=== PATIENT | male | born 1960 | race Caucasian/White ===

== ENCOUNTER 2016-11-24 09:29 | Inpatient (IN) | payer MEDICARE ==
[2016-11-24 10:17] LABS: Hematocrit 48 % (42-52); Hemoglobin 16.1 g/dl (14.0-18.0); Mean Corpuscular HGB Conc 33 g/dl (31-36); Mean Corpuscular Hemoglobin 30 pg (27-31); Mean Corpuscular Volume 90 fL (80-94); Mean Platelet Volume 7 um3 (7.4-10.4); Red Blood Count 5.37 10^6/ul (4.0-5.4); Red Cell Distribution Width 14 % (10.5-15); White Blood Count 10.1 10^3/ul (3.5-10.8)
[2016-11-24 10:20] LABS: Urine Bilirubin Negative (Negative); Urine Glucose Negative (Negative); Urine Nitrite Negative (Negative)
[2016-11-24 10:33] LABS: ALT 12 U/L (7-52); AST 14 U/L (13-39); Albumin 4.7 g/dL (3.2-5.2); Alkaline Phosphatase 46 U/L (34-104); Anion Gap 8 mmol/L (2-11); Blood Urea Nitrogen 10 mg/dL (6-24); CO2 Carbon Dioxide 24 mmol/L (22-32); Chloride 104 mmol/L (101-111); EGFR African American 110.4 (>60); EGFR Non-African American 85.9 (>60); Globulin 2.5 g/dL (2-4); Glucose 116 mg/dL (70-100); Potassium 3.9 mmol/L (3.5-5.0); Sodium 136 mmol/L (133-145); Total Protein 7.2 g/dL (6.4-8.9)
[2016-11-24 10:49] LABS: Acetaminophen < 15 mcg/mL; Alcohol < 10 mg/dL (<10); Salicylate < 2.50 mg/dL (<30)
[2016-11-24 11:01] LABS: Benzodiazepine Urine Screen Presumptive Positive (None Detect)
[2016-11-24] MEDS ORDERED: Acetaminophen TAB* 325 MG PO PRN (12:36)
[2016-11-24] MEDS ORDERED: Al Hydrox/Mg Hydrox/Simet LIQ* 30 ML UDC PO PRN (12:36)
[2016-11-24] MEDS: clonazePAM TAB(*) 0.5 MG PO PRN ×2 (14:27→21:48)
--- NOTE | 2016-11-24 15:56 | PN ---
MHU: Group Therapy Note - Service Type Service Type: [id number] Group Psychotherapy - Group Participation Patient Participating in Group: No
--- NOTE | 2016-11-24 16:14 | ED ---
Brenden Black Rebecca, scribed for Justice Milligan MD on 11/24/16 at 1004 . Psychiatric Complaint - HPI Summary HPI Summary: Pt is a 56 y/o M who presents to ED c/o anxiety and panic attacks for 3 days. He reports that he I just get afraid that I'll lose control." Additionally c/o insomnia and decreased PO intake. Sx aggravated and alleviated by nothing. Denies SIs/HIs. Prior similar episodes that were less severe. - History Of Current Complaint Chief Complaint: EDMentalHealth Time Seen by Provider: 11/24/16 09:44 Hx Obtained From: Patient Onset/Duration: Lasting Days - 3 days, Still Present Character: Anxious Aggravating Factor(s): Nothing Alleviating Factor(s): Nothing Associated Signs And Symptoms: Positive: Sleep Disturbance, Appetite Change Has Suicidal: Denies: Thoughts Has Homicidal: Denies: Thoughts - Allergies/Home Medications Allergies/Adverse Reactions: Allergies Allergy/AdvReac Type Severity Reaction Status Date / Time No Known Allergies Allergy Verified 11/24/16 14:38 PMH/Surg Hx/FS Hx/Imm Hx Endocrine/Hematology History: Denies: Hx Diabetes, Hx Thyroid Disease Cardiovascular History: Denies: Hx Hypertension Respiratory History: Denies: Hx Asthma, Hx Chronic Obstructive Pulmonary Disease (COPD) GI History: Denies: Hx Ulcer Musculoskeletal History: Reports: Hx Orthopedic Injury Psychiatric History: Reports: Hx Depression, Hx Panic Disorder, Hx Post Traumatic Stress Disorder - Surgical History Surgery Procedure, Year, and Place: spinal fusion for t12 burst fracture; left shoulder arthoscopy; left orbital fracture Infectious Disease History: No Infectious Disease History: Denies: Hx Hepatitis, Hx Human Immunodeficiency Virus (HIV), History Other Infectious Disease, Traveled Outside the [place] in Last 30 Days - Family History Known Family History: Negative: Cardiac Disease, Hypertension, Diabetes - Social History Alcohol Use: Daily Alcohol Amount: one beer Substance Use Type: Reports: None Smoking Status (MU): Former Smoker Type: Cigarettes Have You Smoked in the Last Year: No Review of Systems Positive: Other - Decreased PO intake Positive: Anxious, Other - Panic attacks, insomnia; NEGATIVE: SIs, HIs All Other Systems Reviewed And Are Negative: Yes Physical Exam - Summary Physical Exam Summary: VITAL SIGNS: Reviewed. GENERAL: ~Patient is a well-developed and nourished (MALE OR FEMALE) who is lying comfortable in the stretcher. ~Patient is not in any acute respiratory distress. HEAD AND FACE: No signs of trauma. ~No ecchymosis, hematomas or skull depressions. No sinus tenderness. EYES: PERRLA, EOMI x 2, No injected conjunctiva, no nystagmus. EARS: Hearing grossly intact. Ear canals and tympanic membranes are within normal limits. MOUTH: Oropharynx within normal limits. NECK: Supple, trachea is midline, no adenopathy, no JVD, no carotid bruit, no c- spine tenderness, neck with full ROM. CHEST: Symmetric, no tenderness at palpation LUNGS: Clear to auscultation bilaterally. No wheezing or crackles. CVS: Regular rate and rhythm, S1 and S2 present, no murmurs or gallops appreciated. ABDOMEN: Soft, non-tender. No signs of distention. No rebound no guarding, and no masses palpated. Bowel sounds are normal. EXTREMITIES: FROM in all major joints, no edema, no cyanosis or clubbing. NEURO: Alert and oriented x 3. No acute neurological deficits. Speech is normal and follows commands. SKIN: Dry and warm PSYCH: Depressed and denies any suicidal thoughts or plan. Sad, easily crying. No homicidal thoughts or plan. No signs of psychosis or pressure speech. No tangential speech. Triage Information Reviewed: Yes Vital Signs On Initial Exam: Initial Vitals Temp Pulse Resp BP Pulse Ox 97.8 F 86 18 124/79 100 11/24/16 09:32 11/24/16 09:32 11/24/16 09:32 11/24/16 09:32 11/24/16 09:32 Vital Signs Reviewed: Yes Diagnostics - Vital Signs Vital Signs Temp Pulse Resp BP Pulse Ox 11/24/16 09:49 97.8 F 86 18 124/79 100 11/24/16 09:32 97.8 F 86 18 124/79 100 - Laboratory Lab Results: Lab Results 11/24/16 11/24/16 11/24/16 Range/Units 09:59 09:59 10:04 WBC 10.1 (3.5-10.8) 10^3/ul RBC 5.37 (4.0-5.4) 10^6/ul Hgb 16.1 (14.0-18.0) g/dl Hct 48 (42-52) % MCV 90 (80-94) fL MCH 30 (27-31) pg MCHC 33 (31-36) g/dl RDW 14 (10.5-15) % Plt Count 302 (150-450) 10^3/ul MPV 7 L (7.4-10.4) um3 Neut % (Auto) 83.3 H (38-83) % Lymph % (Auto) 11.2 L (25-47) % Mower % (Auto) 4.8 (1-9) % Eos % (Auto) 0.4 (0-6) % Baso % (Auto) 0.3 (0-2) % Absolute Neuts (auto) 8.4 H (1.5-7.7) 10^3/ul Absolute Lymphs (auto) 1.1 (1.0-4.8) 10^3/ul Absolute Monos (auto) 0.5 (0-0.8) 10^3/ul Absolute Eos (auto) 0 (0-0.6) 10^3/ul Absolute Basos (auto) 0 (0-0.2) 10^3/ul Absolute Nucleated RBC 0 10^3/ul Nucleated RBC % 0 Sodium (133-145) mmol/L Potassium (3.5-5.0) mmol/L Chloride (101-111) mmol/L Carbon Dioxide (22-32) mmol/L Anion Gap (2-11) mmol/L BUN (6-24) mg/dL Creatinine (0.67-1.17) mg/dL Est GFR ( Amer) (>60) Est GFR (Non-Af Amer) (>60) BUN/Creatinine Ratio (8-20) Glucose (70-100) mg/dL Calcium (8.6-10.3) mg/dL Total Bilirubin (0.2-1.0) mg/dL AST (13-39) U/L ALT (7-52) U/L Alkaline Phosphatase (34-104) U/L Total Protein (6.4-8.9) g/dL Albumin (3.2-5.2) g/dL Globulin (2-4) g/dL Albumin/Globulin Ratio (1-3) TSH (0.34-5.60) mcIU/mL Urine Color Yellow Urine Appearance Clear Urine pH 5.0 (5-9) Ur Specific [place] 1.016 (1.010-1.030) Urine Protein Negative (Negative) Urine Ketones Negative (Negative) Urine Blood Negative (Negative) Urine Nitrate Negative (Negative) Urine Bilirubin Negative (Negative) Urine Urobilinogen Negative (Negative) Ur Leukocyte Esterase Negative (Negative) Urine Glucose Negative (Negative) Salicylates (<30) mg/dL Urine Opiates Screen None detected (None Detect) Acetaminophen mcg/mL Ur Barbiturates Screen None detected (None Detect) Ur Phencyclidine Scrn None detected (None Detect) Ur Amphetamines Screen None detected (None Detect) U Benzodiazepines Scrn Presumptive positive H (None Detect) Urine Cocaine Screen None detected (None Detect) U Cannabinoids Screen None detected (None Detect) Serum Alcohol (<10) mg/dL 11/24/16 Range/Units 10:04 WBC (3.5-10.8) 10^3/ul RBC (4.0-5.4) 10^6/ul Hgb (14.0-18.0) g/dl Hct (42-52) % MCV (80-94) fL MCH (27-31) pg MCHC (31-36) g/dl RDW (10.5-15) % Plt Count (150-450) 10^3/ul MPV (7.4-10.4) um3 Neut % (Auto) (38-83) % Lymph % (Auto) (25-47) % Mower % (Auto) (1-9) % Eos % (Auto) (0-6) % Baso % (Auto) (0-2) % Absolute Neuts (auto) (1.5-7.7) 10^3/ul Absolute Lymphs (auto) (1.0-4.8) 10^3/ul Absolute Monos (auto) (0-0.8) 10^3/ul Absolute Eos (auto) (0-0.6) 10^3/ul Absolute Basos (auto) (0-0.2) 10^3/ul Absolute Nucleated RBC 10^3/ul Nucleated RBC % Sodium 136 (133-145) mmol/L Potassium 3.9 (3.5-5.0) mmol/L Chloride 104 (101-111) mmol/L Carbon Dioxide 24 (22-32) mmol/L Anion Gap 8 (2-11) mmol/L BUN 10 (6-24) mg/dL Creatinine 0.91 (0.67-1.17) mg/dL Est GFR ( Amer) 110.4 (>60) Est GFR (Non-Af Amer) 85.9 (>60) BUN/Creatinine Ratio 11.0 (8-20) Glucose 116 H (70-100) mg/dL Calcium 10.0 (8.6-10.3) mg/dL Total Bilirubin 0.50 (0.2-1.0) mg/dL AST 14 (13-39) U/L ALT 12 (7-52) U/L Alkaline Phosphatase 46 (34-104) U/L Total Protein 7.2 (6.4-8.9) g/dL Albumin 4.7 (3.2-5.2) g/dL Globulin 2.5 (2-4) g/dL Albumin/Globulin Ratio 1.9 (1-3) TSH 1.90 (0.34-5.60) mcIU/mL Urine Color Urine Appearance Urine pH (5-9) Ur Specific [place] (1.010-1.030) Urine Protein (Negative) Urine Ketones (Negative) Urine Blood (Negative) Urine Nitrate (Negative) Urine Bilirubin (Negative) Urine Urobilinogen (Negative) Ur Leukocyte Esterase (Negative) Urine Glucose (Negative) Salicylates < 2.50 (<30) mg/dL Urine Opiates Screen (None Detect) Acetaminophen < 15 mcg/mL Ur Barbiturates Screen (None Detect) Ur Phencyclidine Scrn (None Detect) Ur Amphetamines Screen (None Detect) U Benzodiazepines Scrn (None Detect) Urine Cocaine Screen (None Detect) U Cannabinoids Screen (None Detect) Serum Alcohol < 10 (<10) mg/dL Result Diagrams: 11/24/16 10:04 11/24/16 10:04 Lab Statement: Any lab studies that have been ordered have been reviewed, and results considered in the medical decision making process. Course/Dx - Course Assessment/Plan: Pt is a 56 y/o M who presents to ED c/o anxiety and panic attacks for 3 days. He reports that he I just get afraid that I'll lose control. " Additionally c/o insomnia and decreased PO intake. Sx aggravated and alleviated by nothing. Denies SIs/HIs. Prior similar episodes that were less severe. Medically cleared for MHE at 1116. Blood work without any significant abnormalities. MHE was done by Dr. Chavez who admitted the pt to his services for further workup and management. Dx is anxiety, unspecified. - Differential Dx/Clinical Impression Differential Diagnosis/HQI/PQRI: Positive: Anxiety, Depression, Suicidal Ideation Provider Diagnosis: Anxiety disorder, unspecified Discharge - Discharge Plan Condition: Stable Disposition: ADMITTED TO [facility] The documentation as recorded by the Brenden jordan Rebecca accurately reflects the service I personally performed and the decisions made by , Justice Milligan MD.
[2016-11-24] MEDS: Lidocaine Patch REMOVE* 1 NOTE MISC PATCH OFF SCH (22:05)
[2016-11-25] MEDS: clonazePAM TAB(*) 0.5 MG PO PRN ×2 (09:07→16:11)
--- NOTE | 2016-11-25 12:37 | HP ---
H&P (Free Text) History and Physical: HPI: ---- Patient is a 56yo male with PPHx significant for Unspecified anxiety d/o, Social anxiety d/o, Panic d/o, and OCD who self presents to [facility] ED reporting 3 days of worsening anxiety and panic attacks which are no longer responding to PRN Xanax or usual coping mechanisms used to distract from the panic. Patient reports the intensity of his anxiety and panic attacks increased in 02/2016, around the time patient's worker's comp insurance stopped covering his [facility] care. Patient reports he stopped the Rx'd Paxil at that time also because he was in a sexual relationship and did not want SSRI s/e's. Patient reports it peaked also 3 weeks ago when baby sitting his 4 grandchildren. He reported experiencing a panic attack and having to call his kids to apple picker the grandchildren. Patient has been on Xanax since 2013 and reports he just ran out of a [address] bottle Rx'd in 2013. He reports a current Rx by his PCP which he has also rarely used. Patient denies depressive symptoms. He exercises daily and reports no hx of alcohol abuse. He reports drinking 5-6 beers per day. Patient reports his anxiety and panic attacks started in his 20's and has periods where the frequency and intensity increase. Patient denies hx of suicide attempt and denies hx of SIB. He had been compliant with a recent SSRI-Prozac but stopped in due to s/e of urinary obstruction with associated flank pain. He is in no current relationship and is amenable to med modification and use of an SSRI. Patient reports no symptoms of psychosis nor were any elicited on interview. Patient has 2 rifles in his home and bottles of old Rx muscle relaxants. He has denied SI/HI and AH/VH since presentation to the ED. Past Psych Hx: Inpt - This is patient's 1st. Outpt - seen at [facility], last in 02/2016 Psychotropic med hx - Duloxetine, Paxil, Imipramine, Klonopin, Celexa(s/e-. Recently Rx'd Xanax and Prozac(s/e-urinary obstruction) by PCP. Suicide attempt Hx / SIB Hx: Patient denies hx of suicide attempt and denies hx of SIB. Trauma Hx: Patient reports having 2 traumatic falls at work. One in 2005 with head trauma and post concussive syndrome. The 2nd in 2009 after a 20ft fall to concrete and suffering a broken hip, ribs, and back. He denies hx of physical abuse, emotional abuse, and sexual abuse/assault. Substance Hx: Patient reports no hx of alcohol abuse. He reports drinking 5-6 beers per day. No hx of alcohol w/d symptoms. No hx of alcohol w/d seizure or DTs. Medical Hx: None Allergies: --------- NKDA Family Hx: -Patient reports no suicide attempts or completions in mom or dad's side of the family. -Patient reports maternal GM dealt with anxiety. -Patient reports mother dealt with anxiety. -Patient reports dad and many on his side of the family has alcohol use d/o symptoms. Social Hx: --------- -Patient born in [place] and raised in [place] -Raised by mom and dad until their divorce when he was 15yo, and was raised by dad until 17yo. -[employer]: grad -1 marriage ending in divorce -Worked primarily in the [employer] -2 sisters, close -2 kids, close -4 grandchildren -Babysits his grandchildren weekly -Unemployed -Self described introvert -Exercises and watches TV with his day -Has 2 rifles in his home -Has old Rx muscle relaxant tabs in his home Home Meds: Home Medications Medication Instructions Recorded Confirmed Type Lidocaine PATCH 5%* [Lidoderm 5% 1 patch TRANSDERM DAILY PRN 03/21/12 10/11/14 History Patch*] Paroxetine HCl [Paxil] 10 mg PO DAILY 03/12/14 10/11/14 History DOXYcycline CAP(*) [DOXYcycline 100 mg PO BID #20 cap 10/17/15 Rx 100MG CAP(*)] VITALS: --------- Vital Signs (72 hours) 11/24/16 11/24/16 11/24/16 09:32 09:49 14:05 Temperature 97.8 F 97.8 F 98.2 F Pulse Rate 86 86 73 Respiratory 18 18 16 Rate Blood Pressure 124/79 124/79 125/86 (mmHg) O2 Sat by Pulse 100 100 Oximetry 11/24/16 11/24/16 11/24/16 14:21 14:27 14:29 Temperature 98.2 F Pulse Rate 73 Respiratory 16 18 16 Rate Blood Pressure 125/86 (mmHg) O2 Sat by Pulse 99 Oximetry 11/24/16 11/24/16 11/24/16 16:27 21:48 23:48 Temperature Pulse Rate Respiratory 16 16 16 Rate Blood Pressure (mmHg) O2 Sat by Pulse Oximetry 11/25/16 11/25/16 11/25/16 08:04 09:07 11:07 Temperature 98.6 F Pulse Rate 63 Respiratory 16 18 18 Rate Blood Pressure 113/70 (mmHg) O2 Sat by Pulse 100 Oximetry 11/25/16 16:11 Temperature Pulse Rate Respiratory 16 Rate Blood Pressure (mmHg) O2 Sat by Pulse Oximetry LABS: ----- 11/24/16 11/24/16 11/24/16 09:59 09:59 10:04 WBC 10.1 RBC 5.37 Hgb 16.1 Hct 48 MCV 90 MCH 30 MCHC 33 RDW 14 Plt Count 302 MPV 7 L Neut % (Auto) 83.3 H Lymph % (Auto) 11.2 L [place] % (Auto) 4.8 Eos % (Auto) 0.4 Baso % (Auto) 0.3 Absolute Neuts (auto) 8.4 H Absolute Lymphs (auto) 1.1 Absolute Monos (auto) 0.5 Absolute Eos (auto) 0 Absolute Basos (auto) 0 Absolute Nucleated RBC 0 Nucleated RBC % 0 Sodium Potassium Chloride Carbon Dioxide Anion Gap BUN Creatinine Est GFR ( Amer) Est GFR (Non-Af Amer) BUN/Creatinine Ratio Glucose Calcium Total Bilirubin AST ALT Alkaline Phosphatase Total Protein Albumin Globulin Albumin/Globulin Ratio TSH Urine Color Yellow Urine Appearance Clear Urine pH 5.0 Ur Specific [place] 1.016 Urine Protein Negative Urine Ketones Negative Urine Blood Negative Urine Nitrate Negative Urine Bilirubin Negative Urine Urobilinogen Negative Ur Leukocyte Esterase Negative Urine Glucose Negative Salicylates Urine Opiates Screen None detected Acetaminophen Ur Barbiturates Screen None detected Ur Phencyclidine Scrn None detected Ur Amphetamines Screen None detected U Benzodiazepines Scrn Presumptive positive H Urine Cocaine Screen None detected U Cannabinoids Screen None detected Serum Alcohol 11/24/16 10:04 WBC RBC Hgb Hct MCV MCH MCHC RDW Plt Count MPV Neut % (Auto) Lymph % (Auto) [place] % (Auto) Eos % (Auto) Baso % (Auto) Absolute Neuts (auto) Absolute Lymphs (auto) Absolute Monos (auto) Absolute Eos (auto) Absolute Basos (auto) Absolute Nucleated RBC Nucleated RBC % Sodium 136 Potassium 3.9 Chloride 104 Carbon Dioxide 24 Anion Gap 8 BUN 10 Creatinine 0.91 Est GFR ( Amer) 110.4 Est GFR (Non-Af Amer) 85.9 BUN/Creatinine Ratio 11.0 Glucose 116 H Calcium 10.0 Total Bilirubin 0.50 AST 14 ALT 12 Alkaline Phosphatase 46 Total Protein 7.2 Albumin 4.7 Globulin 2.5 Albumin/Globulin Ratio 1.9 TSH 1.90 Urine Color Urine Appearance Urine pH Ur Specific [place] Urine Protein Urine Ketones Urine Blood Urine Nitrate Urine Bilirubin Urine Urobilinogen Ur Leukocyte Esterase Urine Glucose Salicylates < 2.50 Urine Opiates Screen Acetaminophen < 15 Ur Barbiturates Screen Ur Phencyclidine Scrn Ur Amphetamines Screen U Benzodiazepines Scrn Urine Cocaine Screen U Cannabinoids Screen Serum Alcohol < 10 PHYSICAL EXAM: GEN - in NAD, looks stated age HEENT - NC/AT, EOEMI, no lesions or discharge noted, conjunctivae clear NECK - supple, no JVD, no LAD, CARDIAC - S1/S2, no discernable murmurs ABD - (+) BS x 4 quad, non-tender EXT - no edema, no lesions MUSCULOSKEL - 5/5 muscle strength in all extremities SKIN - intact, no lesions NEURO - CN 2-12, steady gait MSE: ----- Appearance - thin build, fair hygeine, in NAD Behavior - calm, cooperative Speech - RVR, prosody wnl Eye Contact - good Mood - "anxious" Affect - anxious TP - linear and GD TC - med mx for panic attacks and anxiety Perception - no signs of psychosis noted or reported Orientation - A&Ox3 Cognition - intact Insight - good Judgement - good SI / HI - denies both since admission ASSESSMENT: 1. Unspecified anxiety d/o 2. Panic disorder 3. Social anxiety d/o 4. OCD PLAN: ------ 1. Continue admission to [facility] for safety and symptom mx. 2. Continue Klonopin scheduled at 1mg po qam and 0.5mg po qhs for anxiety. 3. Will D/C Prozac due to patients report of urinary obstruction with flank pain on this med. 4. Patient gives informed consent to start Zoloft at 100mg po daily for anxiety/ depression. 5. Continue compiling collateral information from [facility] providers. 6. Patient to participate in milieu activities and groups.
[2016-11-25] MEDS: Lidocaine Patch REMOVE* 1 NOTE MISC PATCH OFF SCH (22:12)
[2016-11-25] MEDS: clonazePAM TAB(*) 0.5 MG PO SCH (22:13)
[2016-11-26] MEDS: Sertraline* 100 MG TAB PO SCH (10:20)
[2016-11-26] MEDS: clonazePAM TAB(*) 1 MG PO SCH (10:21)
[2016-11-26] MEDS: Lidocaine PATCH 5%* 1 PATCH TRANSDERM PRN (13:18)
[2016-11-26] MEDS: clonazePAM TAB(*) 0.5 MG PO SCH (21:00)
[2016-11-27] MEDS: Lidocaine Patch REMOVE* 1 NOTE MISC PATCH OFF SCH ×2 (01:16→19:14)
[2016-11-27] MEDS: clonazePAM TAB(*) 1 MG PO SCH (09:50)
[2016-11-27] MEDS: Sertraline* 100 MG TAB PO SCH (09:50)
--- NOTE | 2016-11-27 13:47 | PN ---
Subjective - Subjective Service Type: 11139 Hosp care 15 min low complexity - This note was an error. Plan - Plan Treatment Plan: Name: LALO CASTELLANOS Birthdate: 1960 [id number] Medications: Current Medications Acetaminophen (Tylenol Tab*) 650 mg PO Q4H PRN PRN Reason: for pain; or Temp >101 F Last Admin: 11/24/16 14:27 Dose: 325 mg Al Hydrox/Mg Hydrox/Simethicone (Maalox Plus*) 30 ml PO Q4H PRN PRN Reason: INDIGESTION Clonazepam (Klonopin Tab(*)) 0.5 mg PO BEDTIME [facility] Last Admin: 11/26/16 21:00 Dose: 0.5 mg Clonazepam (Klonopin Tab(*)) 1 mg PO QAM [facility] Last Admin: 11/27/16 09:50 Dose: 1 mg Hydroxyzine HCl (Atarax Tab*) 25 mg PO Q4H PRN PRN Reason: AGITATION/ANXIETY/INSOMNIA Lidocaine (Lidoderm 5% Patch*) 1 patch TRANSDERM DAILY PRN PRN Reason: PAIN Last Admin: 11/26/16 13:18 Dose: 1 patch Pharmacy Profile Note (Lidocaine Patch Remove*) 1 note PATCH OFF 2100 [facility] Last Admin: 11/27/16 01:16 Dose: 1 note Sertraline HCl (Zoloft*) 100 mg PO DAILY [facility] Last Admin: 11/27/16 09:50 Dose: 100 mg
--- NOTE | 2016-11-27 15:32 | PN ---
Subjective - Subjective Service Type: 30823 Hosp care 15 min low complexity Subjective: Saw patient in his room. Warren was found pacing on the unit and restless. Reports that his anxiety symptoms are worse around mid day and asking for adjustment to his Klonopin. Denies mood, thoughts or perceptual disturbances. Also denies SI/HI. Objective - Appearance Appearance: Healthy Appearing Dysmorphic Features: No Hygiene: Normal Grooming: Well Kept - Behavior Psychomotor Activities: Abnormal-Increased Exhibits Abnormal Movement: No - Attitude and Relatedness Attitude and Relatedness: Appropriate - Speech Quality: Unpressured Latencies: Normal Quantity: Appropriate - Mood Patient's Decription of Mood: "Anxious" - Affect Observed Affect: Depressed Affect Consistent with: Dysphoria - Thought Process Patient's Thought Process: Coherent, Goal Directed Thought Content: No Passive Wish, No Suicidal Planning, No Homicidal Ideation, No Paranoid Ideation - Sensorium Experiencing Hallucinations: No, Sensorium is Clear Type of Hallucinations: Visual: No, Auditory: No, Command: No - Level of Consciousness Level of Consciousness: Alert Orientation: Yes Intact, Yes Orientated to Time, Yes Orientated to Place, Yes Orientated to Person - Impulse Control Impulse Control: Intact - Insight and Judgement Insight and Judgement: Poor - Group Participation Particating in Group Activities: No - Medication Management Medication Management Adherence: Yes Assessment - Assessment Merits Inpatient Hospitalization: For Stabilization Inpatient DSM-IV Dx: Unspecified Anxiety d/o Clinical Impression: Not much change of anxiety. Plan - Plan Treatment Plan: Name: WARREN CASTELLANOS Birthdate: 1960 [id number] Continued Medication Management: Continue Outpt Medication Medications: Current Medications Acetaminophen (Tylenol Tab*) 650 mg PO Q4H PRN PRN Reason: for pain; or Temp >101 F Last Admin: 11/24/16 14:27 Dose: 325 mg Al Hydrox/Mg Hydrox/Simethicone (Maalox Plus*) 30 ml PO Q4H PRN PRN Reason: INDIGESTION Clonazepam (Klonopin Tab(*)) 0.5 mg PO BEDTIME [facility] Last Admin: 11/26/16 21:00 Dose: 0.5 mg Clonazepam (Klonopin Tab(*)) 1 mg PO QAM [facility] Last Admin: 11/27/16 09:50 Dose: 1 mg Hydroxyzine HCl (Atarax Tab*) 25 mg PO Q4H PRN PRN Reason: AGITATION/ANXIETY/INSOMNIA Lidocaine (Lidoderm 5% Patch*) 1 patch TRANSDERM DAILY PRN PRN Reason: PAIN Last Admin: 11/26/16 13:18 Dose: 1 patch Pharmacy Profile Note (Lidocaine Patch Remove*) 1 note PATCH OFF 2100 [facility] Last Admin: 11/27/16 01:16 Dose: 1 note Sertraline HCl (Zoloft*) 100 mg PO DAILY [facility] Last Admin: 11/27/16 09:50 Dose: 100 mg - Discharge Plan Discharge Plan: Outpatient Follow Up Outpatient Program: [facility]
[2016-11-27] MEDS: hydrOXYzine HCL TAB* 25 MG PO PRN (16:43)
[2016-11-27] MEDS: clonazePAM TAB(*) 0.5 MG PO SCH (21:32)
[2016-11-28] MEDS: Sertraline* 100 MG TAB PO SCH (09:20)
[2016-11-28] MEDS: clonazePAM TAB(*) 1 MG PO SCH ×2 (09:21→20:28)
--- NOTE | 2016-11-28 13:22 | PN ---
MHU: Group Therapy Note - Service Type Service Type: 09684 Group Psychotherapy - Cognitive Behavioral Group Therapy ( CBT):Patient was attentive and participatory in CBT programming this morning, and remained in good behavioral control. Patient expressed positive insights regarding relevant treatment interventions and goals.
[2016-11-28] MEDS: hydrOXYzine HCL TAB* 25 MG PO PRN (13:34)
[2016-11-28] MEDS ORDERED: LORazepam TAB(*) 1 MG PO PRN (15:03)
--- NOTE | 2016-11-28 15:10 | PN ---
Subjective - Subjective Service Type: 43193 Hosp care 15 min low complexity Subjective: Patient visible in the milieu, noted to be pleasant and social. Patient reports good sleep last night and appetite wnl. This am, patient reports waking feeling refreshed and at approx 8am experiencing an untriggered drop in mood. Patient reports he took his morning meds at 9am. He reports his mood increased after administration of Zoloft 100mg and Klonopin 1mg, but reports his anxiety did as well. Patient reports he has not experienced a panic attack since admission, but reports anxiety at noon was at a level equal to that which prompted his ED presentation. Patient denies SI/HI and AH/VH. He is amenable to continuing on with Zoloft and is amenable to dose increase in Klonopin. Patient also given an order for Ativan 1mg po daily PRN for breakthrough anxiety. Objective - Appearance Appearance: Thin Framed Dysmorphic Features: No Hygiene: Normal Grooming: Fairly Well Kept - Behavior Psychomotor Activities: Normal Exhibits Abnormal Movement: No - Attitude and Relatedness Attitude and Relatedness: Cooperative Eye Contact: Good - Speech Quality: Unpressured Latencies: Normal Quantity: Appropriate - Mood Patient's Decription of Mood: "Anxious" - Affect Observed Affect: Fair Affect Consistent with: Euthymia - Thought Process Patient's Thought Process: Coherent Thought Content: No Passive Wish, No Suicidal Planning, No Homicidal Ideation, No Paranoid Ideation - Sensorium Experiencing Hallucinations: No, Sensorium is Clear Type of Hallucinations: Visual: No, Auditory: No, Command: No - Level of Consciousness Level of Consciousness: Alert Orientation: Yes Intact, Yes Orientated to Time, Yes Orientated to Place, Yes Orientated to Person - Impulse Control Impulse Control: Intact - Insight and Judgement Insight and Judgement: Fair - Group Participation Particating in Group Activities: Yes - Medication Management Medication Management Adherence: Yes Assessment - Assessment Merits Inpatient Hospitalization: For Immediate Safety, For Stabilization Inpatient DSM-IV Dx: 1. Unspecified anxiety d/o. 2. Panic disorder. 3. Social anxiety d/o. 4. OCD Plan - Plan Treatment Plan: Name: LALO CASTELLANOS Birthdate: 1960 [id number] PLAN: ------ 1. Continue admission to [facility] for safety and symptom mx. 2. Increase Klonopin from 1mg to 1.5mg po qam and from 0.5mg to 1mg po qhs for anxiety. 3. Will start Ativan 1mg po daily PRN breakthrough anxiety. 4. Continue Zoloft 100mg po daily for anxiety/depression. 5. Prozac D/C'd due to patients report of urinary obstruction with flank pain on this med. 6. Continue compiling collateral information from [facility] providers. 7. Patient to participate in milieu activities and groups. Medications: Current Medications Acetaminophen (Tylenol Tab*) 650 mg PO Q4H PRN PRN Reason: for pain; or Temp >101 F Last Admin: 11/24/16 14:27 Dose: 325 mg Al Hydrox/Mg Hydrox/Simethicone (Maalox Plus*) 30 ml PO Q4H PRN PRN Reason: INDIGESTION Last Admin: 11/27/16 16:07 Dose: 30 ml Clonazepam (Klonopin Tab(*)) 1 mg PO BEDTIME SO Clonazepam (Klonopin Tab(*)) 1.5 mg PO QAM SO Hydroxyzine HCl (Atarax Tab*) 25 mg PO Q4H PRN PRN Reason: AGITATION/ANXIETY/INSOMNIA Last Admin: 11/28/16 13:34 Dose: 25 mg Lidocaine (Lidoderm 5% Patch*) 1 patch TRANSDERM DAILY PRN PRN Reason: PAIN Last Admin: 11/26/16 13:18 Dose: 1 patch Lorazepam (Ativan Tab(*)) 1 mg PO DAILY PRN PRN Reason: ANXIETY Pharmacy Profile Note (Lidocaine Patch Remove*) 1 note PATCH OFF [facility] [facility] Last Admin: 11/27/16 19:14 Dose: Not Given Sertraline HCl (Zoloft*) 100 mg PO DAILY SO Last Admin: 11/28/16 09:20 Dose: 100 mg - Discharge Plan Discharge Plan: Outpatient Follow Up
[2016-11-28] MEDS: Lidocaine Patch REMOVE* 1 NOTE MISC PATCH OFF SCH (20:28)
[2016-11-29] MEDS: Sertraline* 100 MG TAB PO SCH (09:57)
[2016-11-29] MEDS: clonazePAM TAB(*) 0.5 MG PO SCH (09:57)
[2016-11-29] MEDS: LORazepam TAB(*) 1 MG PO PRN ×2 (12:41→18:18)
--- NOTE | 2016-11-29 17:54 | PN ---
Subjective - Subjective Service Type: 78412 Hosp care 15 min low complexity Subjective: Patient visible in the milieu, pleasant and social. Patient is calm and cooperative with interview. He reports ongoing improved mood and level of anxiety. He has not experienced a panic attack since initiation of Clonazepam. Patient reports 1x use of PRN Ativan today for increased anxiety, again around lunchtime. Patient can not identify any possible triggers. Patient reports good sleep and appetite. He is compliant with meds and denies med s/e's today. Patient instructed to attempt to go tomorrow with no use of PRN Ativan if possible, instead using his learned coping mechanisms to work through any breakthrough anxiety. Patient is amenable. Patient again denies SI/HI and AH/VH. Objective - Appearance Appearance: Thin Framed Dysmorphic Features: No Hygiene: Normal Grooming: Well Kept - Behavior Psychomotor Activities: Normal Exhibits Abnormal Movement: No - Attitude and Relatedness Attitude and Relatedness: Cooperative Eye Contact: Fair - Speech Quality: Unpressured Latencies: Normal Quantity: Appropriate - Mood Patient's Decription of Mood: "Okay" - Affect Observed Affect: Fair Affect Consistent with: Euthymia - Thought Process Patient's Thought Process: Coherent Thought Content: No Passive Wish, No Suicidal Planning, No Homicidal Ideation, No Paranoid Ideation - Sensorium Experiencing Hallucinations: No, Sensorium is Clear Type of Hallucinations: Visual: No, Auditory: No, Command: No - Level of Consciousness Level of Consciousness: Alert Orientation: Yes Intact, Yes Orientated to Time, Yes Orientated to Place, Yes Orientated to Person - Impulse Control Impulse Control: Intact - Insight and Judgement Insight and Judgement: Fair - Group Participation Particating in Group Activities: Yes - Medication Management Medication Management Adherence: Yes Assessment - Assessment Merits Inpatient Hospitalization: For Immediate Safety, For Stabilization Inpatient DSM-IV Dx: 1. Unspecified anxiety d/o. 2. Panic disorder. 3. Social anxiety d/o. 4. OCD Plan - Plan Treatment Plan: Name: LALO CASTELLANOS Birthdate: 1960 [id number] PLAN: ------ 1. Continue admission to [facility] for safety and symptom mx. 2. Continue Klonopin from 1mg to 1.5mg po qam and from 0.5mg to 1mg po qhs for anxiety. 3. Continue Ativan 1mg po BID PRN breakthrough anxiety. 4. Continue Zoloft 100mg po daily for anxiety/depression. 5. Prozac D/C'd due to patients report of urinary obstruction with flank pain on this med. 6. Continue compiling collateral information from [facility] providers. 7. Patient to participate in milieu activities and groups. Medications: Current Medications Acetaminophen (Tylenol Tab*) 650 mg PO Q4H PRN PRN Reason: for pain; or Temp >101 F Last Admin: 11/24/16 14:27 Dose: 325 mg Al Hydrox/Mg Hydrox/Simethicone (Maalox Plus*) 30 ml PO Q4H PRN PRN Reason: INDIGESTION Last Admin: 11/27/16 16:07 Dose: 30 ml Clonazepam (Klonopin Tab(*)) 1 mg PO BEDTIME [facility] Last Admin: 11/28/16 20:28 Dose: 1 mg Clonazepam (Klonopin Tab(*)) 1.5 mg PO QAM [facility] Last Admin: 11/29/16 09:57 Dose: 1.5 mg Hydroxyzine HCl (Atarax Tab*) 25 mg PO Q4H PRN PRN Reason: AGITATION/ANXIETY/INSOMNIA Last Admin: 11/28/16 13:34 Dose: 25 mg Lidocaine (Lidoderm 5% Patch*) 1 patch TRANSDERM DAILY PRN PRN Reason: PAIN Last Admin: 11/26/16 13:18 Dose: 1 patch Lorazepam (Ativan Tab(*)) 1 mg PO BID PRN PRN Reason: ANXIETY Last Admin: 11/29/16 12:41 Dose: 1 mg Pharmacy Profile Note (Lidocaine Patch Remove*) 1 note PATCH OFF 2100 [facility] Last Admin: 11/28/16 20:28 Dose: Not Given Sertraline HCl (Zoloft*) 100 mg PO DAILY [facility] Last Admin: 11/29/16 09:57 Dose: 100 mg - Discharge Plan Discharge Plan: Outpatient Follow Up
[2016-11-29] MEDS: clonazePAM TAB(*) 1 MG PO SCH (21:38)
[2016-11-29] MEDS: Lidocaine Patch REMOVE* 1 NOTE MISC PATCH OFF SCH (21:39)
[2016-11-30] MEDS: Lidocaine PATCH 5%* 1 PATCH TRANSDERM PRN (09:09)
[2016-11-30] MEDS: Sertraline* 100 MG TAB PO SCH (09:11)
[2016-11-30] MEDS: clonazePAM TAB(*) 0.5 MG PO SCH (09:11)
[2016-11-30] MEDS: LORazepam TAB(*) 1 MG PO PRN ×2 (11:20→16:20)
--- NOTE | 2016-11-30 11:25 | PN ---
Subjective - Subjective Service Type: 21992 Hosp care 15 min low complexity Subjective: Patient in group on my approach. He is noted to be visible in the milieu, pleasant and social. Patient reports fair sleep and appetite. He reports continued episodes of intense anxiety where employing mechanism to cope is not enough. Patient reports use of 1x PRN Ativan 1mg po today. He reports the only possible trigger he's come up with is his daily losing the people he talks to to discharge, which happened again today. Patient reports he continues to process in his mind returning to his home so to decrease anxiety associated with discharge. He denies SI/HI and AH/VH. He requests referral to a psychiatrist for his hospital f/u as he does not trust his PCP any longer to handle his MH care. Objective - Appearance Appearance: Thin Framed Dysmorphic Features: No Hygiene: Normal Grooming: Fairly Well Kept - Behavior Psychomotor Activities: Normal Exhibits Abnormal Movement: No - Attitude and Relatedness Attitude and Relatedness: Cooperative Eye Contact: Fair - Speech Quality: Unpressured Latencies: Normal Quantity: Appropriate - Mood Patient's Decription of Mood: "Anxious" - Affect Observed Affect: Fair Affect Consistent with: Euthymia - Thought Process Patient's Thought Process: Coherent Thought Content: No Passive Wish, No Suicidal Planning, No Homicidal Ideation, No Paranoid Ideation - Sensorium Experiencing Hallucinations: No, Sensorium is Clear Type of Hallucinations: Visual: No, Auditory: No, Command: No - Level of Consciousness Level of Consciousness: Alert Orientation: Yes Intact, Yes Orientated to Time, Yes Orientated to Place, Yes Orientated to Person - Impulse Control Impulse Control: Intact - Insight and Judgement Insight and Judgement: Fair - Group Participation Particating in Group Activities: Yes - Medication Management Medication Management Adherence: Yes Assessment - Assessment Inpatient DSM-IV Dx: 1. Unspecified anxiety d/o. 2. Panic disorder. 3. Social anxiety d/o. 4. OCD Plan - Plan Treatment Plan: Name: LALO CASTELLANOS Birthdate: 1960 [id number] PLAN: ------ 1. Continue admission to [facility] for safety and symptom mx. 2. Continue Klonopin 1.5mg po qam and 1mg po qhs for anxiety. 3. Continue Ativan 1mg po BID PRN breakthrough anxiety. 4. Continue Zoloft 100mg po daily for anxiety/depression. 5. Prozac D/C'd due to patients report of urinary obstruction with flank pain on this med. 6. Continue compiling collateral information from [facility] providers. 7. Patient to participate in milieu activities and groups. Medications: Current Medications Acetaminophen (Tylenol Tab*) 650 mg PO Q4H PRN PRN Reason: for pain; or Temp >101 F Last Admin: 11/24/16 14:27 Dose: 325 mg Al Hydrox/Mg Hydrox/Simethicone (Maalox Plus*) 30 ml PO Q4H PRN PRN Reason: INDIGESTION Last Admin: 11/27/16 16:07 Dose: 30 ml Clonazepam (Klonopin Tab(*)) 1 mg PO BEDTIME [facility] Last Admin: 11/29/16 21:38 Dose: 1 mg Clonazepam (Klonopin Tab(*)) 1.5 mg PO QAM [facility] Last Admin: 11/30/16 09:11 Dose: 1.5 mg Hydroxyzine HCl (Atarax Tab*) 25 mg PO Q4H PRN PRN Reason: AGITATION/ANXIETY/INSOMNIA Last Admin: 11/28/16 13:34 Dose: 25 mg Lidocaine (Lidoderm 5% Patch*) 1 patch TRANSDERM DAILY PRN PRN Reason: PAIN Last Admin: 11/30/16 09:09 Dose: 1 patch Lorazepam (Ativan Tab(*)) 1 mg PO BID PRN PRN Reason: ANXIETY Last Admin: 11/30/16 11:20 Dose: 1 mg Pharmacy Profile Note (Lidocaine Patch Remove*) 1 note PATCH OFF 2100 [facility] Last Admin: 11/29/16 21:39 Dose: Not Given Sertraline HCl (Zoloft*) 100 mg PO DAILY [facility] Last Admin: 11/30/16 09:11 Dose: 100 mg
[2016-11-30] MEDS: clonazePAM TAB(*) 1 MG PO SCH (20:53)
[2016-11-30] MEDS: Lidocaine Patch REMOVE* 1 NOTE MISC PATCH OFF SCH (20:53)
[2016-12-01] MEDS: Sertraline* 100 MG TAB PO SCH (09:39)
[2016-12-01] MEDS: clonazePAM TAB(*) 0.5 MG PO SCH (09:39)
[2016-12-01] MEDS: hydrOXYzine HCL TAB* 25 MG PO PRN (11:26)
--- NOTE | 2016-12-01 14:33 | PN ---
Subjective - Subjective Service Type: 03174 Hosp care 15 min low complexity Subjective: Patient visible in the milieu, sitting alone at a table on my approach. Patient reports he has experienced increased anxiety today. He reports anxiety of 8/10, if 10/10 was the intensity level on admission he experienced due to recurrent intractable panic attacks. Patient identifies his upcoming discharge as the cause. He reports focusing on his feeling that he currently has no coping skills to employ that work once discharged and he finds himself at home with a panic attack. Patient request continued admission to work on gaining more coping skills. He reports SW has planned to sit with him and discuss coping strategies. He reports use of both PRN Ativans yesterday due to inability to cope with anxiety without it. He reports no med s/e's. Sleep and appetite are wnl. He denies SI/HI and AH/VH. Patient gives this provider consent to call his son Capo Avila to clear his home of patient's 2 rifles and old Rx pills. Objective - Appearance Appearance: Thin Framed Dysmorphic Features: No Hygiene: Normal Grooming: Fairly Well Kept - Behavior Psychomotor Activities: Normal Exhibits Abnormal Movement: No - Attitude and Relatedness Attitude and Relatedness: Cooperative Eye Contact: Fair - Speech Quality: Unpressured Latencies: Normal Quantity: Appropriate - Mood Patient's Decription of Mood: "Anxious" - Affect Observed Affect: Fair Affect Consistent with: Euthymia - Thought Process Patient's Thought Process: Coherent Thought Content: No Passive Wish, No Suicidal Planning, No Homicidal Ideation, No Paranoid Ideation - Sensorium Experiencing Hallucinations: No, Sensorium is Clear Type of Hallucinations: Visual: No, Auditory: No, Command: No - Level of Consciousness Level of Consciousness: Alert Orientation: Yes Intact, Yes Orientated to Time, Yes Orientated to Place, Yes Orientated to Person - Impulse Control Impulse Control: Intact - Insight and Judgement Insight and Judgement: Fair - Group Participation Particating in Group Activities: Yes - Medication Management Medication Management Adherence: Yes Assessment - Assessment Merits Inpatient Hospitalization: For Immediate Safety, For Stabilization Inpatient DSM-IV Dx: 1. Unspecified anxiety d/o. 2. Panic disorder. 3. Social anxiety d/o. 4. OCD Plan - Plan Treatment Plan: Name: LALO AVILA Birthdate: 1960 [id number] PLAN: ------ 1. Continue admission to [facility] for safety and symptom mx. 2. Continue Klonopin 1.5mg po qam and 1mg po qhs for anxiety. 3. Continue Ativan 1mg po BID PRN breakthrough anxiety. 4. Continue Zoloft 100mg po daily for anxiety/depression. 5. Prozac D/C'd due to patients report of urinary obstruction with flank pain on this med. 6. Patient gives this provider consent to call his son Capo Avila to clear his home of patient's 2 rifles and old Rx pills. 7. Tenative discharge on Monday discussed with patient. 8. Patient to participate in milieu activities and groups. Medications: Current Medications Acetaminophen (Tylenol Tab*) 650 mg PO Q4H PRN PRN Reason: for pain; or Temp >101 F Last Admin: 11/24/16 14:27 Dose: 325 mg Al Hydrox/Mg Hydrox/Simethicone (Maalox Plus*) 30 ml PO Q4H PRN PRN Reason: INDIGESTION Last Admin: 11/27/16 16:07 Dose: 30 ml Clonazepam (Klonopin Tab(*)) 1 mg PO BEDTIME [facility] Last Admin: 11/30/16 20:53 Dose: 1 mg Clonazepam (Klonopin Tab(*)) 1.5 mg PO QAM [facility] Last Admin: 12/01/16 09:39 Dose: 1.5 mg Hydroxyzine HCl (Atarax Tab*) 25 mg PO Q4H PRN PRN Reason: AGITATION/ANXIETY/INSOMNIA Last Admin: 12/01/16 11:26 Dose: 25 mg Lidocaine (Lidoderm 5% Patch*) 1 patch TRANSDERM DAILY PRN PRN Reason: PAIN Last Admin: 11/30/16 09:09 Dose: 1 patch Lorazepam (Ativan Tab(*)) 1 mg PO BID PRN PRN Reason: ANXIETY Last Admin: 11/30/16 16:20 Dose: 1 mg Pharmacy Profile Note (Lidocaine Patch Remove*) 1 note PATCH OFF [facility] Last Admin: 11/30/16 20:53 Dose: 1 note Sertraline HCl (Zoloft*) 100 mg PO DAILY [facility] Last Admin: 12/01/16 09:39 Dose: 100 mg - Discharge Plan Discharge Plan: Outpatient Follow Up
[2016-12-01] MEDS: LORazepam TAB(*) 1 MG PO PRN (15:31)
--- NOTE | 2016-12-01 16:15 | PN ---
MHU: Group Therapy Note - Service Type Service Type: [id number] Group Psychotherapy - Medication education group. Discussed categories of psychopharmacology, side effects, risks/benefits. Reviewed common misconceptions and facts. Patient participated fully, tangential at times but redirectable.
[2016-12-01] MEDS: clonazePAM TAB(*) 1 MG PO SCH (21:56)
[2016-12-01] MEDS: Lidocaine Patch REMOVE* 1 NOTE MISC PATCH OFF SCH (22:23)
[2016-12-02] MEDS: Sertraline* 100 MG TAB PO SCH (10:02)
[2016-12-02] MEDS: clonazePAM TAB(*) 0.5 MG PO SCH (10:02)
[2016-12-02] MEDS: LORazepam TAB(*) 1 MG PO PRN (11:15)
--- NOTE | 2016-12-02 11:48 | PN ---
MHU: Group Therapy Note - Service Type Service Type: [id number] Group Psychotherapy - Cognitive Behavioral Group Therapy ( CBT):Patient was attentive and participatory in CBT programming this morning, and remained in good behavioral control. Warren tends to engage in help rejecting dynamics in group context, but is attentive to discussion and appropriate with peers.
[2016-12-02] MEDS: hydrOXYzine HCL TAB* 25 MG PO PRN (13:32)
--- NOTE | 2016-12-02 17:06 | PN ---
Subjective - Subjective Service Type: 79439 Hosp care 15 min low complexity Subjective: Patient visible in the milieu, pleasant, and social with peers. He is participating in milieu activities and groups. Patient reports interest in starting Duloxetine as he learned of its dual neuralgia and mood benefits in med group yesterday with unit DIRECTOR OF BLOOD. Patient informed this is true , but trial would have to be started with outpt MH provider as Zoloft is being uptitrated currently with benefit. Patient informed started another serotenergic med may lead to issues including serotenergic syndrome. He was educated it is best to uptitrate Zoloft to max dose and if ineffective controlling anxiety he can then taper off Zoloft and start trial of Duloxetine. Patient amenable. He denies SI/HI and AH/VH. He reports good sleep and appetite. Patient is med compliant and denies med s/ e. He reports ongoing benefit from groups developing coping skills. Patient reminded he would not discharge on PRN ativan and encouraged to use coping skills with worsening anxiety instead of his BID PRN ativan tabs. Patient acknowledged understanding and was amenable. Objective - Appearance Appearance: Well Developed/Nourished, Thin Framed Dysmorphic Features: No Hygiene: Normal Grooming: Well Kept - Behavior Psychomotor Activities: Normal Exhibits Abnormal Movement: No - Attitude and Relatedness Attitude and Relatedness: Cooperative Eye Contact: Good - Speech Quality: Unpressured Latencies: Normal Quantity: Appropriate - Mood Patient's Decription of Mood: "Okay" - Affect Observed Affect: Fair Affect Consistent with: Euthymia - Thought Process Patient's Thought Process: Coherent Thought Content: No Passive Wish, No Suicidal Planning, No Homicidal Ideation, No Paranoid Ideation - Sensorium Experiencing Hallucinations: No, Sensorium is Clear Type of Hallucinations: Visual: No, Auditory: No, Command: No - Level of Consciousness Level of Consciousness: Alert Orientation: Yes Intact, Yes Orientated to Time, Yes Orientated to Place, Yes Orientated to Person - Impulse Control Impulse Control: Intact - Insight and Judgement Insight and Judgement: Fair - Group Participation Particating in Group Activities: Yes - Medication Management Medication Management Adherence: Yes Assessment - Assessment Merits Inpatient Hospitalization: For Immediate Safety, For Stabilization Inpatient DSM-IV Dx: 1. Unspecified anxiety d/o. 2. Panic disorder. 3. Social anxiety d/o. 4. OCD Plan - Plan Treatment Plan: Name: LALO Méndezdate: 1960 [id number] PLAN: ------ 1. Continue admission [place] [facility] for safety and symptom mx. 2. Continue Klonopin 1.5mg po qam and 1mg po qhs for anxiety. 3. Continue Ativan 1mg po BID PRN breakthrough anxiety. 4. Continue Zoloft 100mg po daily for anxiety/depression. 5. Prozac D/C'd due to patients report of urinary obstruction with flank pain on this med. 6. Patient gives this provider consent to call his son Capo Avila to clear his home of patient's 2 rifles and old Rx pills. VM left x2, no call or message yet Capo. 7. Tenative discharge on Monday discussed with patient. 8. Patient to participate in milieu activities and groups. Medications: Current Medications Acetaminophen (Tylenol Tab*) 650 mg PO Q4H PRN PRN Reason: for pain; or Temp >101 F Last Admin: 11/24/16 14:27 Dose: 325 mg Al Hydrox/Mg Hydrox/Simethicone (Maalox Plus*) 30 ml PO Q4H PRN PRN Reason: INDIGESTION Last Admin: 11/27/16 16:07 Dose: 30 ml Clonazepam (Klonopin Tab(*)) 1 mg PO BEDTIME [facility] Last Admin: 12/01/16 21:56 Dose: 1 mg Clonazepam (Klonopin Tab(*)) 1.5 mg PO QAM [facility] Last Admin: 12/02/16 10:02 Dose: 1.5 mg Hydroxyzine HCl (Atarax Tab*) 25 mg PO Q4H PRN PRN Reason: AGITATION/ANXIETY/INSOMNIA Last Admin: 12/02/16 13:32 Dose: 25 mg Lidocaine (Lidoderm 5% Patch*) 1 patch TRANSDERM DAILY PRN PRN Reason: PAIN Last Admin: 11/30/16 09:09 Dose: 1 patch Lorazepam (Ativan Tab(*)) 1 mg PO BID PRN PRN Reason: ANXIETY Last Admin: 12/02/16 11:15 Dose: 1 mg Pharmacy Profile Note (Lidocaine Patch Remove*) 1 note PATCH OFF [address] [facility] Last Admin: 12/01/16 22:23 Dose: Not Given Sertraline HCl (Zoloft*) 100 mg PO DAILY [facility] Last Admin: 12/02/16 10:02 Dose: 100 mg - Discharge Plan Discharge Plan: Outpatient Follow Up
[2016-12-02] MEDS: clonazePAM TAB(*) 1 MG PO SCH (21:33)
[2016-12-02] MEDS: Lidocaine Patch REMOVE* 1 NOTE MISC PATCH OFF SCH (21:34)
[2016-12-03] MEDS: clonazePAM TAB(*) 0.5 MG PO SCH (10:07)
[2016-12-03] MEDS: Sertraline* 100 MG TAB PO SCH (10:08)
[2016-12-03] MEDS: LORazepam TAB(*) 1 MG PO PRN ×2 (12:41→18:40)
[2016-12-03] MEDS: hydrOXYzine HCL TAB* 25 MG PO PRN (14:25)
[2016-12-03] MEDS: clonazePAM TAB(*) 1 MG PO SCH (21:09)
[2016-12-03] MEDS: Lidocaine Patch REMOVE* 1 NOTE MISC PATCH OFF SCH (21:10)
[2016-12-04] MEDS: clonazePAM TAB(*) 0.5 MG PO SCH (09:53)
[2016-12-04] MEDS: Sertraline* 100 MG TAB PO SCH (09:54)
[2016-12-04] MEDS: LORazepam TAB(*) 1 MG PO PRN ×2 (11:33→18:10)
[2016-12-04] MEDS: hydrOXYzine HCL TAB* 25 MG PO PRN (13:22)
[2016-12-04] MEDS: clonazePAM TAB(*) 1 MG PO SCH (20:45)
[2016-12-04] MEDS: Lidocaine Patch REMOVE* 1 NOTE MISC PATCH OFF SCH (20:46)
[2016-12-05 08:31] VITALS: BP 123/79
[2016-12-05] MEDS: clonazePAM TAB(*) 0.5 MG PO SCH (09:20)
[2016-12-05] MEDS: Sertraline* 100 MG TAB PO SCH (09:21)
[2016-12-05] MEDS ORDERED: LORazepam TAB(*) 1 MG PO ONE (11:50)
[2016-12-05] MEDS ORDERED: LORazepam TAB(*) 1 MG ONE (13:42)
[2016-12-05] MEDS ORDERED: LORazepam TAB(*) 1 MG PO PRN (13:59)
--- NOTE | 2016-12-05 14:04 | DS ---
Subjective - Subjective Service Types: 06003 [facility] Day Mgmt simple under 30 min Subjective: Patient reports good benefit from groups over the weekend and reports he feels more comfortable that the coping mechanisms he learned on this admission will be beneficial. SW informed this provider that patient's daughter has already cleared his home of his 2 rifles. Patient reports she also took his old bottle of muscle relaxants. Patient reports he feels ready for discharge. He denies SI/HI and AH/VH. Patient reports good sleep, appetite, and denies med s/e's. Objective - Appearance Appearance: Well Developed/Nourished, Thin Framed Dysmorphic Features: No Hygiene: Normal Grooming: Well Kept - Behavior Psychomotor Activities: Normal Exhibits Abnormal Movement: No - Attitude and Relatedness Attitude and Relatedness: Cooperative Eye Contact: Good - Speech Quality: Unpressured Latencies: Normal Quantity: Appropriate - Mood Patient's Decription of Mood: "Anxious" - Affect Observed Affect: Fair Affect Consistent with: Euthymia - Thought Process Patient's Thought Process: Coherent Thought Content: No Passive Wish, No Suicidal Planning, No Homicidal Ideation, No Paranoid Ideation - Sensorium Experiencing Hallucinations: No, Sensorium is Clear Type of Hallucinations: Visual: No, Auditory: No, Command: No - Level of Consciousness Level of Consciousness: Alert Orientation: Yes Intact, Yes Orientated to Time, Yes Orientated to Place, Yes Orientated to Person - Impulse Control Impulse Control: Intact - Insight and Judgement Insight and Judgement: Fair - Group Participation Particating in Group Activities: Yes - Medication Management Medication Management Adherence: Yes Treatment Course & Assessment Clinical Course & Impression: HOSPITAL COURSE: Patient is a 56yo male with PPHx significant for Unspecified anxiety d/o, Social anxiety d/o, Panic d/o, and OCD who self presents to [facility] reporting 3 days of worsening anxiety and panic attacks which are no longer responding to PRN Xanax or usual coping mechanisms used to distract from the panic. Patient reports the intensity of his anxiety and panic attacks increased in 02/2016, around the time patient's worker's comp insurance stopped covering his [facility]. Patient reports he stopped the Rx'd Paxil at that time also because he was in a sexual relationship and did not want SSRI s/e's. Patient reports it peaked also 3 weeks ago when baby sitting his 4 grandchildren. He reported experiencing a panic attack and having to call his kids to garbage pick up man the grandchildren. Patient has been on Xanax since 2013 and reports he just ran out of a [address] bottle Rx'd in 2013. He reports a current Rx by his PCP which he has also rarely used. Patient denies depressive symptoms. He exercises daily and reports no hx of alcohol abuse. He reports drinking 5-6 beers per day. Patient reports his anxiety and panic attacks started in his 20's and has periods where the frequency and intensity increase. Patient denies hx of suicide attempt and denies hx of SIB. He had been compliant with a recent SSRI-Prozac but stopped in due to s/e of urinary obstruction with associated flank pain. He is in no current relationship and is amenable to med modification and use of an SSRI. Patient reports no symptoms of psychosis nor were any elicited on interview. Patient has 2 rifles in his home and bottles of old Rx muscle relaxants. He denied SI/HI and AH/VH since presentation to the ED. On admission, Prozac discontinued due to patients report of urinary obstruction with flank pain on this med. Patient gave informed consent to start Zoloft at 100mg po daily for anxiety/depression. Klonopin started at 0.5mg po BID PRN at admission, but was scheduled at 1mg po qam and 0.5mg po qhs for anxiety on admission day 4 after showing benefit over that weekend. Patient experienced no more panic attacks on Klonopin, but still dealt with intense breakthrough anxiety. PRN Ativan 1mg daily was added for episodes of breakthrough anxiety. Patient noted to be more visible on the milieu. Patient reported good benefit from groups, especially in the development of usable coping mechanisms instead of reaching for a pill. Patient educated that the goal of therapy is as coping mechanisms are employed and improved, he should begin the tapering off of Ativan and ultimately Klonopin. Patient educated on the adverse effects on cognition and gait from benzos in patients >60yo. Patient acknowledged understanding. On day on discharge, patient is A&Ox3, linear and GD in TP, future oriented in conversation. Patient reports desire to get home to see his grandchildren. Patient reports good benefit from groups over the weekend and reports he feels more comfortable that the coping mechanisms he learned on this admission will be beneficial. SW informed this provider that patient's daughter has already cleared his home of his 2 rifles. Patient reports she also took his old bottle of muscle relaxants. Patient reports he feels ready for discharge. He denies SI/HI and AH/VH. Patient is psychiatrically stable. Discharge plan discussed and patient is amenable. Patient will be discharged home, his car is parked still on campus. PERTINENT LABS: Laboratory Tests 11/24/16 11/24/16 11/24/16 09:59 09:59 10:04 WBC 10.1 RBC 5.37 Hgb 16.1 Hct 48 MCV 90 MCH 30 MCHC 33 RDW 14 Plt Count 302 MPV 7 L Neut % (Auto) 83.3 H Lymph % (Auto) 11.2 L [place] % (Auto) 4.8 Eos % (Auto) 0.4 Baso % (Auto) 0.3 Absolute Neuts (auto) 8.4 H Absolute Lymphs (auto) 1.1 Absolute Monos (auto) 0.5 Absolute Eos (auto) 0 Absolute Basos (auto) 0 Absolute Nucleated RBC 0 Nucleated RBC % 0 Sodium Potassium Chloride Carbon Dioxide Anion Gap BUN Creatinine Est GFR ( Amer) Est GFR (Non-Af Amer) BUN/Creatinine Ratio Glucose Calcium Total Bilirubin AST ALT Alkaline Phosphatase Total Protein Albumin Globulin Albumin/Globulin Ratio TSH Urine Color Yellow Urine Appearance Clear Urine pH 5.0 Ur Specific [place] 1.016 Urine Protein Negative Urine Ketones Negative Urine Blood Negative Urine Nitrate Negative Urine Bilirubin Negative Urine Urobilinogen Negative Ur Leukocyte Esterase Negative Urine Glucose Negative Salicylates Urine Opiates Screen None detected Acetaminophen Ur Barbiturates Screen None detected Ur Phencyclidine Scrn None detected Ur Amphetamines Screen None detected U Benzodiazepines Scrn Presumptive positive H Urine Cocaine Screen None detected U Cannabinoids Screen None detected Serum Alcohol 11/24/16 10:04 WBC RBC Hgb Hct MCV MCH MCHC RDW Plt Count MPV Neut % (Auto) Lymph % (Auto) [place] % (Auto) Eos % (Auto) Baso % (Auto) Absolute Neuts (auto) Absolute Lymphs (auto) Absolute Monos (auto) Absolute Eos (auto) Absolute Basos (auto) Absolute Nucleated RBC Nucleated RBC % Sodium 136 Potassium 3.9 Chloride 104 Carbon Dioxide 24 Anion Gap 8 BUN 10 Creatinine 0.91 Est GFR ( Amer) 110.4 Est GFR (Non-Af Amer) 85.9 BUN/Creatinine Ratio 11.0 Glucose 116 H Calcium 10.0 Total Bilirubin 0.50 AST 14 ALT 12 Alkaline Phosphatase 46 Total Protein 7.2 Albumin 4.7 Globulin 2.5 Albumin/Globulin Ratio 1.9 TSH 1.90 Urine Color Urine Appearance Urine pH Ur Specific [place] Urine Protein Urine Ketones Urine Blood Urine Nitrate Urine Bilirubin Urine Urobilinogen Ur Leukocyte Esterase Urine Glucose Salicylates < 2.50 Urine Opiates Screen Acetaminophen < 15 Ur Barbiturates Screen Ur Phencyclidine Scrn Ur Amphetamines Screen U Benzodiazepines Scrn Urine Cocaine Screen U Cannabinoids Screen Serum Alcohol < 10 Consultants: none Discharge Meds: Home Medications Medication Instructions Recorded Confirmed Type Lidocaine PATCH 5%* [Lidoderm 5% 1 patch TRANSDERM DAILY PRN 03/21/12 10/11/14 History Patch*] LORazepam TAB(*) [Ativan 1 MG TAB 1 mg PO BID PRN #60 tab MDD 2 12/05/16 Rx (*)] Sertraline* [Zoloft*] 100 mg PO DAILY #30 tab 12/05/16 Rx clonazePAM TAB(*) [Klonopin TAB(*)] 1 mg PO BEDTIME #30 tab MDD 2.5 12/05/16 Rx clonazePAM TAB(*) [Klonopin TAB(*)] 1.5 mg PO QAM #30 tab MDD 2.5 12/05/16 Rx hydrOXYzine HCL TAB* [Atarax 25 MG 25 mg PO Q4H PRN #30 tab 12/05/16 Rx TAB*] Follow-Up: appointment for within the next 2 weeks scheduled by ASHLEE at [facility]. Clear for Discharge: Adequate Clinical Respons, Acceptable Safety Profile Inpatient DSM-IV Dx: 1. Unspecified anxiety d/o. 2. Panic disorder. 3. Social anxiety d/o. 4. OCD Discharge Planning - Discharge Planning Discharge Plan: Outpatient Follow Up Outpatient Program: [facility] Recommendations for Continuing Care: Medication Management Medications: Current Medications Acetaminophen (Tylenol Tab*) 650 mg PO Q4H PRN PRN Reason: for pain; or Temp >101 F Last Admin: 11/24/16 14:27 Dose: 325 mg Al Hydrox/Mg Hydrox/Simethicone (Maalox Plus*) 30 ml PO Q4H PRN PRN Reason: INDIGESTION Last Admin: 11/27/16 16:07 Dose: 30 ml Clonazepam (Klonopin Tab(*)) 1.5 mg PO QAM SO Clonazepam (Klonopin Tab(*)) 1 mg PO BEDTIME SO Hydroxyzine HCl (Atarax Tab*) 25 mg PO Q4H PRN PRN Reason: AGITATION/ANXIETY/INSOMNIA Last Admin: 12/04/16 13:22 Dose: 25 mg Lidocaine (Lidoderm 5% Patch*) 1 patch TRANSDERM DAILY PRN PRN Reason: PAIN Last Admin: 11/30/16 09:09 Dose: 1 patch Lorazepam (Ativan Tab(*)) 1 mg PO BID PRN PRN Reason: breakthrough anxiety Pharmacy Profile Note (Lidocaine Patch Remove*) 1 note PATCH OFF 2[address] [facility] Last Admin: 12/04/16 20:46 Dose: Not Given Sertraline HCl (Zoloft*) 100 mg PO DAILY [facility] Last Admin: 12/05/16 09:21 Dose: 100 mg Discharge Planning: Prescriptions provided for discharge [x] Yes [] No Follow up care details as per social work arrangements. Patient response to discharge plan: [] eager for discharge [x] agreeable with discharge plan [] ambivalent about discharge [] disagrees with discharge today
[2016-12-05] MEDS ORDERED: clonazePAM TAB(*) 1 MG PO SCH (21:00)
[2016-12-06] MEDS ORDERED: clonazePAM TAB(*) 1 MG PO SCH (09:00)
== END 2016-12-05 16:13 | disposition home or self-care (01) | DRG 880 ==
LOC: ED 09:29 → BSU 14:17
PROVIDERS: ADMIT Psychiatry & Neurology Psychiatry; ATTEND Psychiatry & Neurology Psychiatry
DX: F41.9 Anxiety disorder, unspecified (principal); F41.0 Panic disorder [episodic paroxysmal anxiety]; F42.9 Obsessive-compulsive disorder, unspecified; Z81.8 Family history of other mental and behavioral disorders
CPT/HCPCS: 36415; 80053; 80307; 80320; 80329; 81003; 84443; 85025; 90853; 99222; 99231; 99238; A9270-GY; G0480

== ENCOUNTER 2018-08-04 11:56 | Emergency (ER) | payer MEDICARE ==
[2018-08-04 12:22] VITALS: BP 117/79
--- NOTE | 2018-08-04 12:54 | UC ---
Skin Complaint HPI - HPI Summary HPI Summary: was cleaning brush 2 weeks ago and branch "squeezed" his finger. ever since has flet like thre is something in finger. he tried to dig it out with a needle. now over psat week there has been pus coming out of PW - History of Current Complaint Chief Complaint: UCSkin Time Seen by Provider: 08/04/18 12:41 Stated Complaint: FB IN FINGER Hx Obtained From: Patient Onset/Duration: Sudden Onset Pain Intensity: 0 Location: Hand (Right) - right 5th finger Aggravating Factor(s): Touch Alleviating Factor(s): Nothing Associated Signs & Symptoms: Positive: Drainage, Tenderness. Negative: Fever, Chills, Red Streaks Related History: Trauma, Foreign Body - Allergy/Home Medications Allergies/Adverse Reactions: Allergies Allergy/AdvReac Type Severity Reaction Status Date / Time No Known Allergies Allergy Verified 08/04/18 12:22 Home Medications: Home Medications DULoxetine DR CAP* [Cymbalta CAP*] 30 mg PO DAILY 08/04/18 [History Confirmed ] clonazePAM TAB(*) [Klonopin TAB(*)] 1 mg PO TID 08/04/18 [History Confirmed ] PMH/Surg Hx/FS Hx/Imm Hx Previously Healthy: Yes Psychological History: Anxiety, Depression - Surgical History Surgical History: Yes Surgery Procedure, Year, and Place: spinal fusion for t12 burst fracture; left shoulder arthoscopy; left orbital fracture repair - Family History Known Family History: Positive: None Negative: Cardiac Disease, Hypertension, Diabetes - Social History Occupation: Disabled Lives: Alone Alcohol Use: Daily Alcohol Amount: 1-4 beers daily Substance Use Type: None Smoking Status (MU): Former Smoker Type: Cigarettes Amount Used/How Often: pt. smoked seven years ending 1991. Now uses no tobacco of any type. Length of Time of Smoking/Using Tobacco: seven years Have You Smoked in the Last Year: No When Did the Patient Quit Smoking/Using Tobacco: 1991 - Immunization History Most Recent Influenza Vaccination: never Most Recent Tetanus Shot: unknown Most Recent Pneumonia Vaccination: never Review of Systems All Other Systems Reviewed And Are Negative: Yes Constitutional: Positive: Negative. Negative: Fever Skin: Positive: Other Respiratory: Positive: Negative Cardiovascular: Positive: Negative Musculoskeletal: Negative: Decreased ROM Is Patient Immunocompromised?: No Physical Exam Triage Information Reviewed: Yes Appearance: Well-Appearing, No Pain Distress, Well-Nourished Vital Signs: Initial Vital Signs Temp 98.9 F 08/04/18 12:17 Pulse 69 08/04/18 12:17 Resp 16 08/04/18 12:17 BP 117/79 08/04/18 12:17 Pulse Ox 100 08/04/18 12:17 Vital Signs Reviewed: Yes Respiratory Exam: Normal Cardiovascular Exam: Normal Neurological Exam: Normal Neurological: Positive: Alert Psychological Exam: Normal Skin Exam: Other - small PW with erythema R 5th finger, small amount purulent drainage expressed from wound with manual pressure. n obvious FB but pt reacts with pain when pressre applied to area Diagnostics - Radiology No standard instances Radiology Interpretation Completed By: Radiologist - no FB , no fx Course/Dx - Differential Diagnoses - Skin Complaint Differential Diagnoses: Cellulitis, Foreign Body, Other - skin abscess - Diagnoses Provider Diagnosis: Abscess Discharge - Sign-Out/Discharge Documenting (check all that apply): Patient Departure All imaging exams completed and their final reports reviewed: Yes - Discharge Plan Condition: Good Disposition: HOME Prescriptions: Cephalexin CAP* [Keflex CAP*] 500 mg PO QID #40 cap Patient Education Materials: Abscess (ED) Referrals: No Primary Care Phys,NOPCP [Primary Care Provider] - Additional Instructions: keep wound clean and dry take antibiotic as prescribed return here if no better 3 days - Billing Disposition and Condition Condition: GOOD Disposition: Home
[2018-08-04] MEDS ORDERED: Tetan/Diph/Pertus SYR(Tdap)* 0.5 ML SYR(BOOSTRIX) use SYR IM ONE (12:55)
== END 2018-08-04 13:44 | disposition home or self-care (01) ==
LOC: UCEAST 11:56
DX: L03.011 Cellulitis of right finger (principal); S60.456A Superficial foreign body of right little finger, initial encounter; W22.8XXA Striking against or struck by other objects, initial encounter; Y92.9 Unspecified place or not applicable; Z87.891 Personal history of nicotine dependence
CPT/HCPCS: 73140; 90471; 90715; 99212; G0463